=== PATIENT | female | born 1955 | race Two or more races ===

== ENCOUNTER 2025-05-19 19:42 | Inpatient (IN) | payer OTHER, MEDICAID ==
[~2025-05-19] VITALS: Ht 154.9 cm; Wt 67.9 kg
--- NOTE | 2025-05-19 20:13 | ED.PDOC ---
Naomie. trauma (HPI) HPI Comments 69-year-old female with a history of hypertension and dyslipidemia brought in by daughter for evaluation of a fall injury. Patient states she was walking with a laundry basket in her hands, when she accidentally tripped on a brick, falling onto an outstretched left hand, and hitting the left side of her face on the cement. Patient is complaining of left wrist pain and pain/ bruising near her left eye. She denies losing consciousness. Patient states she was able to stand and ambulate independently after the fall. At triage, patient was noted to be bradycardic in the 30s. Patient denies chest pain, shortness of breath or dizziness. Chief Complaint: Fall injury Time Seen by MD: 20:13 Reviewed notes: Nurses Notes Allergies: Coded Allergies: No Known Drug Allergy (Verified Allergy, Unknown, 05/19/25) Information Source: Patient, Relative Mode of Arrival: Ambulatory Severity: Moderate Timing: Minutes Duration: Since onset Location: Eye (Left), (L) Wrist Mechanism: Fall Associated signs and symtoms: Headache Past Medical History PAST MEDICAL HISTORY: High Lipids, HTN Surgical History: Hysterectomy (Partial) Surgical History (Other): Back surgery, left nephrectomy at 8 years old SOFTWARE INTEGRATION DEVELOPER History: Denies all SOFTWARE INTEGRATION DEVELOPER Hx Family History Family History: Reviewed,noncontributory to illness Social History Smoker: Non-Smoker Alcohol: Denies ETOH Use Drugs: Denies Drug Use Lives In: Home Constitutional: denies: chills, diaphoresis, fatigue, fever, malaise, sweats, weakness, others EENTM: denies: blurred vision, double vision, ear bleeding, ear discharge, ear drainage, ear pain, ear ringing, eye pain, eye redness, hearing loss, mouth pain, mouth swelling, nasal discharge, nose bleeding, nose congestion, nose pain, photophobia, tearing, throat pain, throat swelling, voice changes, others Respiratory: denies: cough, hemoptysis, orthopnea, SOB at rest, shortness of breath, SOB with excertion, stridor, wheezing, others Cardiovascular: denies: chest pain, dizzy spells, diaphoresis, Dyspnea on exertion, edema, irregular heart beat, left arm pain, lightheadedness, palpitations, PND, syncope, others Gastrointestinal: denies: abdomen distended, abdominal pain, blood streaked bowels, constipated, diarrhea, dysphagia, difficulty swallowing, hematemesis, melena, nausea, poor appetite, poor fluid intake, rectal bleeding, rectal pain, vomiting, others Genitourinary: denies: abnormal vagina bleeding, burning, dyspareunia, dysuria, flank pain, frequency, hematuria, incontinence, pain, , vagina discharge, urgency, others Neurological: denies: dizziness, fainting, headache, left sided numbness, left sided weakness, numbness, paresthesia, pre-existing deficit, right sided numbne ss, right sided weakness, seizure, speech problems, tingling, tremors, weakness, others Musculoskeletal: reports: joint pain (Left wrist); denies: back pain, gout, joint swelling, muscle pain, muscle stiffness, neck pain, others Integumetry: denies: bruises, change in color, change in hair/nails, dryness, laceration, lesions, lumps, rash, wounds, others Allergic/Immunocompromised: denies: Difficulty Healing, Frequent Infections, Hives, Itching, others Hematologic/Lymphatic: denies: anemia, blood clots, easy bleeding, easy bru ising, swollen glands, others Endocrine: denies: excessive hunger, excessive sweating, excessive thirst, e xcessive urination, flushing, intolerance to cold, intolerance to heat, unexplained weight gain, unexplained weight loss, others Psychiatric: denies: anxiety, bipolar disorder, depression, hopeless, panic disorder, schizophrenia, sleepless, suicidal, others Physical Exam General Appearance: Mild Distress HEENT: Other (Pupils and face symmetric. Moist mucous membranes. Soft tissue tenderness and bruising lateral left periorbital area) Neck: Full Range of Motion, Non-Tender, Normal Inspection, Supple Respiratory: Lungs Clear, No Accessory Muscle Use, No Respiratory Distress, Normal Breath Sounds Cardiovascular: Bradycardia, No Edema, No JVD Breast Exam: Deferred Gastrointestinal: Non Tender, Soft Genitalia: Deferred Pelvic: Deferred Rectal: Deferred Extremities: Tender (Left wrist diffuse soft tissue tenderness. No edema or deformity.) Neurologic: Alert (Oriented x4), Normal Affect, Normal Mood, Other (Ambulatory) Cerebellar Function: NOT DONE Reflexes: NOT DONE Skin: Dry, Normal Color, Warm Lymphatic: NOT DONE Was a procedure done? Was a procedure done?: No EKG EKG : Comments Sinus rhythm, rate 77, normal TX interval, QRS prolonged at 125, QTC prolonged at 526, left axis deviation, possible old inferior or anteroseptal infarct, nonspecific T change, ventricular bigeminy Differential Diagnosis Multiple Trauma: Closed Head Injury, Fractures, Cerebral Contusion, Hematoma Neck Injury: Other (Arrhythmia, TN, among others) X-Ray, Labs, Meds, VS Vital Signs Date Time Temp Pulse Resp B/P (MAP) Pulse Ox O2 Delivery O2 Flow Rate FiO2 05/19/25 19:50 98.2 61 18 146/58 (87) 97 98.2 Lab Test 05/19/25 21:02 05/19/25 20:09 Range/Units Troponin I High Sensitivity 16 13 </=34 ng/L White Blood Count 5.6 4.4-10.8 10^3/uL Red Blood Count 4.50 4.0-5.20 10^6/uL Hemoglobin 13.4 12.2-16.2 g/dL Hematocrit 40.6 36.0-46.0 % Mean Corpuscular Volume 90.1 80.0-100.0 fL Mean Corpuscular Hemoglobin 29.8 28.0-32.0 pg Mean Corpuscular Hemoglobin Concent 33.1 32.0-36.0 g/dL Red Cell Distribution Width 14.4 H 11.8-14.3 % Platelet Count 198 140-450 10^3/uL Mean Platelet Volume 8.8 6.9-10.8 fL Neutrophils (%) (Auto) 47.2 37.0-80.0 % Lymphocytes (%) (Auto) 40.1 10.0-50.0 % Monocytes (%) (Auto) 7.8 0.0-12.0 % Eosinophils (%) (Auto) 3.8 0.0-7.0 % Basophils (%) (Auto) 1.1 0.0-2.0 % Neutrophils # (Auto) 2.6 1.6-8.6 10 ^3/uL Lymphocytes # (Auto) 2.2 0.4-5.4 10 ^3/uL Monocytes # (Auto) 0.4 0-1.3 10 ^3/uL Eosinophils # (Auto) 0.2 0-0.8 10 ^3/uL Basophils # (Auto) 0.1 0-0.2 10 ^3/uL Nucleated Red Blood Cells 0.1 % Sodium Level 144 136-145 mmol/L Potassium Level 3.7 3.5-5.1 mmol/L Chloride Level 111 H 98-107 mmol/L Carbon Dioxide Level 22 20-31 mmol/L Anion Gap 11 5-15 Blood Urea Nitrogen 15 9-23 mg/dL Creatinine 0.65 0.550-1.02 mg/dL Glomerular Filtration Rate Calc 95 >90 mL/min BUN/Creatinine Ratio 23.1 H 10.0-20.0 Serum Glucose 109 H 74-106 mg/dL Calcium Level 9.3 8.7-10.4 mg/dL B-Type Natriuretic Peptide 203.93 0-100 pg/mL Current Medications Medications (Trade) Dose Ordered Sig/Elena Route Start Time Stop Time Status Last Admin Acetaminophen/ Hydrocodone Bitart ([place] 5/325MG Tab) 1 tab ONCE ONCE PO 05/19/25 20:15 05/19/25 20:16 DC 05/19/25 20:52 PROCEDURE(s): FAC2C - MAXILLOFACIAL WITHOUT REASON: L facial trauma ORDER NUMBER(s): [id number], ACCESSION NUMBER(s): [id number] CT MAXILLOFACIAL WITHOUT INDICATION: L facial trauma TECHNIQUE: Noncontrast axial images of the facial bones are then obtained along with coronal and sagittal reformatted images. All CT scans at this facility use dose modulation, iterative reconstruction, and/or weight based dosing when appropriate to reduce radiation dose to as low as reasonably achievable. COMPARISON: None FINDINGS: FACIAL BONES: The nasal, lacrimal, inferior nasal lucille, and palatine bones are intact. The vomer and perpendicular plate of the ethmoid are intact. The zygomatic bones are intact. The maxilla is intact. The mandible is intact. PARANASAL SINUSES: The bony margins of the paranasal sinuses are intact. There is no air fluid level within the sinuses. The paranasal sinuses are essentially clear. ORBITS: The right and left globes are intact. The bony margins of the orbits are intact. The extraconal space is intact without inflammatory stranding of the extraconal fat. The extraocular muscles are symmetric. The intraconal space including the optic canal and nerve are symmetric. OTHER: Degenerative change of bilateral temporomandibular joints. IMPRESSION: 1. No CT evidence of an acute facial fracture. EDURE(s): CXRP - CHEST PORTABLE REASON: bradycardia ORDER NUMBER(s): [id number], ACCESSION NUMBER(s): [id number] EXAM: XY CHEST PORTABLE HISTORY: bradycardia TECHNIQUE: 1 view of the chest COMPARISON: None FINDINGS/IMPRESSION: LUNGS: No pleural effusion, consolidation, or pneumothorax. Low lung volumes, which cause crowding of the bronchovascular markings. MEDIASTINUM: Normal cardiac size BONES: No acute osseous abnormality OTHER: None EDURE(s): LWRI - L WRIST 3+ VIEW XRAY REASON: FOOSH ORDER NUMBER(s): [id number], ACCESSION NUMBER(s): [id number] EXAM: XY L WRIST 3+ VIEW XRAY INDICATION: FOOSH TECHNIQUE: 3 views of the left wrist COMPARISON: None FINDINGS/IMPRESSION: No radiographic evidence of an acute osseous abnormality. There is no acute fracture, osseous malalignment, or aggressive focal osseous lesion. Mild degenerative change of the 1st carpometacarpal joint. Diffusely decreased bone mineralization. Trace possible soft tissue calcification in the region of the triangular fibrocartilage complex. X-Ray, Labs, Meds, VS Comment 69-year-old female with a history of hypertension and dyslipidemia brought in by daughter for evaluation of left wrist and left facial pain status post mechanical trip and fall. Patient was incidentally found to be bradycardic down to the 30s at triage. Vitals remarkable for heart rate 33 Rhythm strip independently interpreted by me: Sinus rhythm, rate 77, ventricular bigeminy CT maxillofacial bones, chest x-ray and left wrist x-rays unremarkable for any acute finding CBC and basic metabolic panel unremarkable, 2 serial troponins negative, BNP 203.93 Patient treated with the following in the ED: [place] 5/325 mg p.o. On re-evaluation, heart rate was in the 60s and blood pressure was stable. Patient stated pain had improved. Plan is to admit the patient for Cardiology evaluation Time of 1ST Reevaluation: 20:08 Reevaluation 1ST: Unchanged Time of 2ND Reevaluation: 21:32 Reevaluation 2ND: Improved Patient Education/Counseling: Diagnosis, Treatment Family Education/Counseling: Diagnosis, Treatment Departure 1 Departure Time of Disposition: 21:32 Impression: Primary Impression: Fall Additional Impressions: Left wrist sprain Facial contusion Bradycardia Ventricular bigeminy Disposition: ADMITTED INPATIENT Admit to: Tele Condition: Guarded Critical Care Note Critical Care Time?: Yes (35 min-critical care time only) Critical care comment: Critical care time including multiple bedside re-evaluations, review of lab and imaging studies, and discussion of the case with the admitting provider. Patient is high risk for hemodynamic decompensation. Stability Stability form required: No Heart Score Heart Score: Heart Score Response (Comments) Value History N/A 0 EKG N/A 0 Age N/A 0 Risk Factors N/A 0 Troponin N/A 0 Total 0 I personally scribed for MIREYA OZUNA MD ([email or web address]) on 05/19/25 at 20:13. Electronically submitted by Krunal Chamberlain ([facility]). I personally scribed for MIREYA OZUNA MD ([email or web address]) on 05/19/25 at 21:36. Electronically submitted by Krunal Chamberlain ([email or web address]). MIREYA OZUNA MD May 19, 2025 20:13
[2025-05-19 20:21] LABS: Hematocrit 40.6 % (36.0-46.0); Hemoglobin 13.4 g/dL (12.2-16.2); Mean Corpuscular Hemoglobin 29.8 pg (28.0-32.0); Mean Corpuscular Volume 90.1 fL (80.0-100.0); Nucleated Red Blood Cells % 0.1 %
[2025-05-19 20:39] LABS: Potassium 3.7 mmol/L (3.5-5.1); Sodium 144 mmol/L (136-145)
[2025-05-19 20:40] LABS: Anion Gap 11 (5-15); Calcium 9.3 mg/dL (8.7-10.4); Carbon Dioxide 22 mmol/L (20-31)
[2025-05-19 20:44] LABS: Chloride 111 mmol/L (98-107)
[2025-05-19 20:45] LABS: BUN/Creatinine Ratio 23.1 (10.0-20.0); Blood Urea Nitrogen 15 mg/dL (9-23)
[2025-05-19 20:46] LABS: Glucose 109 mg/dL (74-106)
[2025-05-19] MEDS: HYDROcodone-ACET 5/325MG TAB PO ONE (20:52)
--- NOTE | 2025-05-19 21:09 | DVH ---
EXAM: XY L WRIST 3+ VIEW XRAY INDICATION: FOOSH TECHNIQUE: 3 views of the left wrist COMPARISON: None FINDINGS/IMPRESSION: No radiographic evidence of an acute osseous abnormality. There is no acute fracture, osseous malalig nment, or aggressive focal osseous lesion. Mild degenerative change of the 1st carpometacarpal joint. Diffusely decreased bone mineralization. Trace possible soft tissue calcification in the region of t he triangular fibrocartilage complex.
--- NOTE | 2025-05-19 21:12 | DVH ---
CT MAXILLOFACIAL WITHOUT INDICATION: L facial trauma TECHNIQUE: Noncontrast axial images of the facial bones are then obtained along with coronal and sagi ttal reformatted images. All CT scans at this facility use dose modulation, iterative reconstruction, and/or weight based dosing when appropriate to reduce radiation dose to as low as reasonably achieva ble. COMPARISON: None FINDINGS: FACIAL BONES: The nasal, lacrimal, inferior nasal lucille, and palatine bones are intact. The vomer an d perpendicular plate of the ethmoid are intact. The zygomatic bones are intact. The maxilla is intac t. The mandible is intact. PARANASAL SINUSES: The bony margins of the paranasal sinuses are intact. There is no air fluid level within the sinuses. The paranasal sinuses are essentially clear. ORBITS: The right and left globes are intact. The bony margins of the orbits are intact. The extracon al space is intact without inflammatory stranding of the extraconal fat. The extraocular muscles are symmetric. The intraconal space including the optic canal and nerve are symmetric. OTHER: Degenerative change of bilateral temporomandibular joints. IMPRESSION: 1. No CT evidence of an acute facial fracture.
--- NOTE | 2025-05-19 21:12 | DVH ---
EXAM: XY CHEST PORTABLE HISTORY: bradycardia TECHNIQUE: 1 view of the chest COMPARISON: None FINDINGS/IMPRESSION: LUNGS: No pleural effusion, consolidation, or pneumothorax. Low lung volumes, which cause crowding of the bronchovascular markings. MEDIASTINUM: Normal cardiac size BONES: No acute osseous abnormality OTHER: None
--- NOTE | 2025-05-19 23:14 | DVHHP2 ---
History of Present Illness Reason for Visit: Facial contusion History of Present Illness The patient is a 69-year-old female with past medical history of hypertension and hyperlipidemia who presented to [facility] ED for evaluation of fall injury. Patient reports she was working with a laundry basket in her hand w hen she accidentally tripped and fall on a brick outstretched left hand, and hitting the left side of her face on the cement with sustained injury. Patient is complaining of left wrist pain, left shoulder pain, bruising near her left eye. Patient was seen and evaluated in the ED, laboratory data shows WBC 5.6, platelets 198, sodium 144, potassium 3.7, BUN 15, creatinine 0.65, glucose 109, calcium 9.3, troponin 16, BNP 203.93, blood pressure 146/58, heart rate 62, temperature 98.2 F, O2 saturation 97% on room air. Maxillofacial CT showed no acute evidence of facial fracture. On my assessment, patient denied chest pain, no headache, no dizziness, no loss of consciousness, no shortness of breaths, no nausea, no vomiting, no fever, no chills. Patient was admitted for further evaluation and medical management. Past Medical History High Lipids, HTN Past Surgical History Hysterectomy (Partial), Back surgery, left nephrectomy at 8 years old Family History Reviewed, noncontributory to the management of this case. Past Social History The patient lives at home, denies smoking, alcohol or illicit drugs abuse. Review of Systems Constitutional: No: Fever, Chills, Sweats, Weakness, Malaise, Other Eyes: No: Pain, Vision change, Conjunctivae inflammation, Eyelid inflammation, Other, Redness ENT: No: Ear pain, Ear discharge, Nose pain, Nose discharge, Nose congestion, Mouth pain, Mouth swelling, Throat pain, Throat swelling, Other Respiratory: No: Cough, Dry, Shortness of breath, SOB with excertion, Wheezing, Hemoptysis, Pleuritic Pain, Sputum, Wheezing, Other Cardiovascular: No: Chest Pain, Palpitations, Orthopnea, Paroxysmal Noc. Dyspnea, Edema, Lt Headedness, Other Gastrointestinal: No: Nausea, Vomiting, Abdominal Pain, Diarrhea, Constipation, Melena, Hematochezia, Other Genitourinary: No Dysuria, No Frequency, No Incontinence, No Hematuria, No Retention, No Other Musculoskeletal: other (Left wrist pain), shoulder pain; No: neck pain, arm pain, back pain, hand pain, leg pain, foot pain Skin: No: Rash, Lesions, Jaundice, Bruising, Other Neurological: No: Weakness, Numbness, Incoordination, Change in speech, Confusion, Seizures, Other Allergies: Coded Allergies: No Known Drug Allergy (Verified Allergy, Unknown, 05/19/25) Exam Vital Signs Vital Signs Date Time Temp Pulse Resp B/P (MAP) Pulse Ox O2 Delivery O2 Flow Rate FiO2 05/19/25 19:50 98.2 61 18 146/58 (87) 97 98.2 General Appearance: Alert, Oriented X3, Cooperative, No acute distress HEENT: Atraumatic, PERRLA, EOMI, Mucous membr. moist/pink Respiratory: Clear to auscultation, Normal air movement Cardiovascular: Regular rate, Normal S1, Normal S2, No murmurs Abdominal: Normal bowel sounds, Soft, No tenderness, No hepatospenomegaly, No masses Extremities: No clubbing, No cyanosis, No edema, Normal pulses, Other (Reports tenderness/swelling) Skin: No rashes, No breakdown, No significant lesion Neuro: Normal gait, Normal speech, Strength at 5/5 X4 ext, Normal tone, Sensation intact, Cranial nerves 3-12 NL, Reflexes 2+ Psych/Mental Status: Mental status NL, Mood NL Labs/Xrays Labs Test 05/19/25 21:02 05/19/25 20:09 Range/Units Troponin I High Sensitivity 16 </=34 ng/L White Blood Count 5.6 4.4-10.8 10^3/uL Red Blood Count 4.50 4.0-5.20 10^6/uL Hemoglobin 13.4 12.2-16.2 g/dL Hematocrit 40.6 36.0-46.0 % Mean Corpuscular Volume 90.1 80.0-100.0 fL Mean Corpuscular Hemoglobin 29.8 28.0-32.0 pg Mean Corpuscular Hemoglobin Concent 33.1 32.0-36.0 g/dL Red Cell Distribution Width 14.4 H 11.8-14.3 % Platelet Count 198 140-450 10^3/uL Mean Platelet Volume 8.8 6.9-10.8 fL Neutrophils (%) (Auto) 47.2 37.0-80.0 % Lymphocytes (%) (Auto) 40.1 10.0-50.0 % Monocytes (%) (Auto) 7.8 0.0-12.0 % Eosinophils (%) (Auto) 3.8 0.0-7.0 % Basophils (%) (Auto) 1.1 0.0-2.0 % Neutrophils # (Auto) 2.6 1.6-8.6 10 ^3/uL Lymphocytes # (Auto) 2.2 0.4-5.4 10 ^3/uL Monocytes # (Auto) 0.4 0-1.3 10 ^3/uL Eosinophils # (Auto) 0.2 0-0.8 10 ^3/uL Basophils # (Auto) 0.1 0-0.2 10 ^3/uL Nucleated Red Blood Cells 0.1 % Sodium Level 144 136-145 mmol/L Potassium Level 3.7 3.5-5.1 mmol/L Chloride Level 111 H 98-107 mmol/L Carbon Dioxide Level 22 20-31 mmol/L Anion Gap 11 5-15 Blood Urea Nitrogen 15 9-23 mg/dL Creatinine 0.65 0.550-1.02 mg/dL Glomerular Filtration Rate Calc 95 >90 mL/min BUN/Creatinine Ratio 23.1 H 10.0-20.0 Serum Glucose 109 H 74-106 mg/dL Calcium Level 9.3 8.7-10.4 mg/dL B-Type Natriuretic Peptide 203.93 0-100 pg/mL PATIENT: CARLA COLON ACCT: [id number] UNIT: [id number] : 1955 LOC: ER ROOM / BED: / AGE / SEX: 69 / F ADM STATUS: REG ER SERVICE 06 ORDERING PHYSICIAN: MIREYA OZUNA MD PROCEDURE(s): FAC2C - MAXILLOFACIAL WITHOUT REASON: L facial trauma ORDER NUMBER(s): [id number], ACCESSION NUMBER(s): [id number] CT MAXILLOFACIAL WITHOUT INDICATION: L facial trauma TECHNIQUE: Noncontrast axial images of the facial bones are then obtained along with coronal and sagittal reformatted images. All CT scans at this facility use dose modulation, iterative reconstruction, and/or weight based dosing when appropriate to reduce radiation dose to as low as reasonably achievable. COMPARISON: None FINDINGS: FACIAL BONES: The nasal, lacrimal, inferior nasal lucille, and palatine bones are intact. The vomer and perpendicular plate of the ethmoid are intact. The zygomatic bones are intact. The maxilla is intact. The mandible is intact. PARANASAL SINUSES: The bony margins of the paranasal sinuses are intact. There is no air fluid level within the sinuses. The paranasal sinuses are essentially clear. ORBITS: The right and left globes are intact. The bony margins of the orbits are intact. The extraconal space is intact without inflammatory stranding of the extraconal fat. The extraocular muscles are symmetric. The intraconal space including the optic canal and nerve are symmetric. OTHER: Degenerative change of bilateral temporomandibular joints. IMPRESSION: 1. No CT evidence of an acute facial fracture. ORDERING PHYSICIAN: MIREYA OZUNA MD PROCEDURE(s): LWRI - L WRIST 3+ VIEW XRAY REASON: FOOSH ORDER NUMBER(s): [id number], ACCESSION NUMBER(s): [id number] EXAM: XY L WRIST 3+ VIEW XRAY INDICATION: FOOSH TECHNIQUE: 3 views of the left wrist COMPARISON: None FINDINGS/IMPRESSION: No radiographic evidence of an acute osseous abnormality. There is no acute fracture, osseous malalignment, or aggressive focal osseous lesion. Mild degenerative change of the 1st carpometacarpal joint. Diffusely decreased bone mineralization. Trace possible soft tissue calcification in the region of the triangular fibrocartilage complex. ORDERING PHYSICIAN: MIREYA OZUNA MD PROCEDURE(s): CXRP - CHEST PORTABLE REASON: bradycardia ORDER NUMBER(s): [id number], ACCESSION NUMBER(s): [id number] EXAM: XY CHEST PORTABLE HISTORY: bradycardia TECHNIQUE: 1 view of the chest COMPARISON: None FINDINGS/IMPRESSION: LUNGS: No pleural effusion, consolidation, or pneumothorax. Low lung volumes, which cause crowding of the bronchovascular markings. MEDIASTINUM: Normal cardiac size BONES: No acute osseous abnormality Assessment/Plan Assessment/Plan Fall with injury Left wrist sprain Facial contusion Bradycardia Ventricular bigeminy Plan 1. Admit to telemetry units 2. Breathing treatment 3. Pain control management 4. Management of fluids and electrolytes 5. Consultation for hospitalist 6. Diagnostic tests left wrist x-ray 7. DVT prophylaxis-on SCDs 8. Repeat labs CBC, CMP in a.m. 9. Continue with current medical management 10. Treatment plan discussed with patient and RN. Patient verbalized understanding. Plan discussed with: Patient, Other (RN) My Orders Orders - RIMA LAWSON DNP Procedure Category Date Status Time Hydralazine Injection PHA 05/19/25 Verified (Apresoline Inject 23:15 Amlodipine Tablet PHA 05/20/25 Verified (Norvasc Tablet) 10:00 Atorvastatin (Lipitor) PHA 05/20/25 Verified 22:00 Admit ADMIT 05/19/25 Verified 23:08 Allergies JB 05/19/25 Verified 23:08 Code Status CODE 05/19/25 Verified 23:08 Sodium Chloride Lock PHA 05/20/25 Verified (Saline Lock Ns) 06:00 Oxygen Per Hour RT 05/19/25 Verified 23:08 Hydrocodone-Acet [facility] 05/19/25 Verified 5/325mg Tab ([place] 23:15 Ondansetron Hcl PHA 05/19/25 Verified (Zofran) 23:15 Docusate [address]odium [facility] 05/19/25 Verified Capsule (Colace 23:15 Complete Blood Count LAB 05/20/25 Verified 04:00 Comprehensive LAB 05/20/25 Verified Metabolic Panel 04:00 Cardiac DIET 05/20/25 Verified Diet-2gna,Lofat,Lochol Breakfast Condition: Serious [facility] 05/19/25 Verified 23:08 Acetaminophen Tablet [facility] 05/19/25 Verified (Tylenol Tablet) 23:15 Bedrest With Bathroom [facility] 05/19/25 Verified Privileg 23:08 Sequential [facility] 05/19/25 Verified Compression Device Nitroglycerin [facility] 05/19/25 Verified Sublingual (Ntrostat 23:[address] Morphine [address]ulf[address] [facility] 05/19/25 Verified Injection 23:15 Stat Ekg For Chest [facility] 05/19/25 Verified Pain 23:08 Notify Of Changes [facility] 05/19/25 Verified From Base 23:08 Shift Superintendent Caustic Cresylate For [facility] 05/19/25 Verified 24 Hours 23:08 Emergency Dysrhythmia [facility] 05/19/25 Verified Protocol 23:08 Rhythm Strips Once [facility] 05/19/25 Verified Every Shift 23:08 Oxygen By Nasal RT 05/19/25 Verified Cannula 23:08 Gabap[address]aps[address] [facility] 05/20/25 Verified (Neurontin Capsule) 06:00 Problem List: (1) Fall with injury (2) Left wrist sprain (3) Facial contusion (4) Bradycardia (5) Ventricular bigeminy Date of Service: May 19, 2025 Billing Provider: RIMA LAWSON DNP Common Visit Codes: [id number] INP/OBS CARE (HIGH) RIMA LAWSON DNP May 19, 2025 23:14
[2025-05-19] MEDS ORDERED: MORPHINE SULFATE INJ 2 MG/ml SYRG IV PRN (23:15)
[2025-05-19] MEDS ORDERED: hydrALAZINE HCL 20 MG/ML VL IV PRN (23:15)
[2025-05-19] MEDS ORDERED: DOCUSATE SOD 100 MG CAP PO PRN (23:15)
[2025-05-19] MEDS ORDERED: NITROGLYCERIN 0.4 MG SL TAB SL PRN (23:15)
[2025-05-19] MEDS ORDERED: ONDANSETRON HCL 4 MG/2 ML VIAL IV PRN (23:15)
[2025-05-19 23:39] VITALS: PULSE 61; RESP 20; O2SAT 91
[2025-05-20] VITALS (8 sets, daily range): BP systolic 120–149; BP diastolic 62–88; PULSE 50–85; RESP 12–18; TEMP 97.6–98.4; O2SAT 52–96
[2025-05-20] MEDS: ACETAMINOPHEN 325 MG TAB PO PRN (02:54)
[2025-05-20] MEDS ORDERED: TRAM-626 PO (04:07)
[2025-05-20] MEDS ORDERED: CITA10TA8 PO (04:08)
[2025-05-20] MEDS ORDERED: ATOR20TA PO (04:08)
[2025-05-20] MEDS: GABAPENTIN 300 MG CAP PO SCH (06:03)
[2025-05-20] MEDS: SODIUM CHLOR 0.9% PF (SALINE LOCK) 10ML VIAL/SYR IV SCH (06:06)
--- NOTE | 2025-05-20 06:41 | ECG ---
[facility] Test Date: 2025-05-19 Test Time: 20:01:36 Pat Name: CARLA COLON Department: ER Room: 0245T Gender: F Childcare Worker: SRINIVAS : 1955 Requested By: MIREYA REDMAN Order Number: [id number] Reading MD: Measurements Intervals [place] Rate: 77 P: 45 MI: 154 QRS: -6 QRSD: 125 T: 84 QT: 464 QTc: 526 Interpretive Statements Sinus rhythm Ventricular bigeminy Nonspecific intraventricular conduction delay Consider anterior infarct Please click the below link to view image of tracing.
[2025-05-20 07:46] LABS: Hematocrit 43.3 % (36.0-46.0); Hemoglobin 14.4 g/dL (12.2-16.2); Mean Corpuscular Hemoglobin 30.0 pg (28.0-32.0); Mean Corpuscular Volume 90.4 fL (80.0-100.0); Nucleated Red Blood Cells % 0.1 %
[2025-05-20 08:07] LABS: Albumin 4.5 g/dL (3.2-4.8); Alkaline Phosphatase 110 U/L (46-116); Anion Gap 11 (5-15); BUN/Creatinine Ratio 14.8 (10.0-20.0); Bilirubin, Total 0.7 mg/dL (0.2-1.0); Calcium 9.8 mg/dL (8.7-10.4); Carbon Dioxide 24 mmol/L (20-31); Potassium 3.8 mmol/L (3.5-5.1); Sodium 144 mmol/L (136-145); Total Protein 7.0 g/dL (5.7-8.2)
[2025-05-20 08:20] LABS: Alanine Aminotransferase 55 U/L (7-40); Blood Urea Nitrogen 9 mg/dL (9-23); Chloride 109 mmol/L (98-107); Glucose 107 mg/dL (74-106)
[2025-05-20] MEDS: HYDROcodone-ACET 5/325MG TAB PO PRN (09:35)
--- NOTE | 2025-05-20 17:12 | DVHDS2 ---
Discharge Summary Date of Admission May 19, 2025 at 23:08 Date of Discharge: May 20, 2025 Labs/Diagnostic Data: Laboratory Results Test 05/20/25 06:52 05/19/25 21:02 05/19/25 20:09 White Blood Count 6.2 10^3/uL (4.4-10.8) Red Blood Count 4.79 10^6/uL (4.0-5.20) Hemoglobin 14.4 g/dL (12.2-16.2) Hematocrit 43.3 % (36.0-46.0) Mean Corpuscular Volume 90.4 fL (80.0-100.0) Mean Corpuscular Hemoglobin 30.0 pg (28.0-32.0) Mean Corpuscular Hemoglobin Concent 33.2 g/dL (32.0-36.0) Red Cell Distribution Width 14.0 % (11.8-14.3) Platelet Count 198 10^3/uL (140-450) Mean Platelet Volume 8.9 fL (6.9-10.8) Neutrophils (%) (Auto) 55.7 % (37.0-80.0) Lymphocytes (%) (Auto) 33.4 % (10.0-50.0) Monocytes (%) (Auto) 6.5 % (0.0-12.0) Eosinophils (%) (Auto) 3.4 % (0.0-7.0) Basophils (%) (Auto) 1.0 % (0.0-2.0) Neutrophils # (Auto) 3.5 10 ^3/uL (1.6-8.6) Lymphocytes # (Auto) 2.1 10 ^3/uL (0.4-5.4) Monocytes # (Auto) 0.4 10 ^3/uL (0-1.3) Eosinophils # (Auto) 0.2 10 ^3/uL (0-0.8) Basophils # (Auto) 0.1 10 ^3/uL (0-0.2) Nucleated Red Blood Cells 0.1 % Sodium Level 144 mmol/L (136-145) Potassium Level 3.8 mmol/L (3.5-5.1) Chloride Level 109 mmol/L (98-107) Carbon Dioxide Level 24 mmol/L (20-31) Anion Gap 11 (5-15) Blood Urea Nitrogen 9 mg/dL (9-23) Creatinine 0.61 mg/dL (0.550-1.02) Glomerular Filtration Rate Calc 97 mL/min (>90) BUN/Creatinine Ratio 14.8 (10.0-20.0) Serum Glucose 107 mg/dL (74-106) Calcium Level 9.8 mg/dL (8.7-10.4) Total Bilirubin 0.7 mg/dL (0.2-1.0) Aspartate Amino Transferase (AST) 91 U/L (13-40) Alanine Aminotransferase (ALT) 55 U/L (7-40) Alkaline Phosphatase 110 U/L (46-116) Total Protein 7.0 g/dL (5.7-8.2) Albumin 4.5 g/dL (3.2-4.8) Troponin I High Sensitivity 16 ng/L (</=34) B-Type Natriuretic Peptide 203.93 pg/mL (0-100) Other Laboratory Tests 05/20/25 06:52 Brief Hx & Hospital Course: History of Present Illness The patient is a 69-year-old female with past medical history of hypertension and hyperlipidemia who presented to [facility] ED for evaluation of fall injury. Patient reports she was working with a laundry basket in her hand when she accidentally tripped and fall on a brick outstretched left hand, and hitting the left side of her face on the cement with sustained injury. Patient is complaining of left wrist pain, left shoulder pain, bruising near her left eye. Patient was seen and evaluated in the ED, laboratory data shows WBC 5.6, platelets 198, sodium 144, potassium 3.7, BUN 15, creatinine 0.65, glucose 109, calcium 9.3, troponin 16, BNP 203.93, blood pressure 146/58, heart rate 62, temperature 98.2 F, O2 saturation 97% on room air. Maxillofacial CT showed no acute evidence of facial fracture. On my assessment, patient denied chest pain, no headache, no dizziness, no loss of consciousness, no shortness of breaths, no nausea, no vomiting, no fever, no chills. Patient was admitted for further evaluation and medical management. Summary: Patient presented after mechanical fall while doing laundry. She complained with left wrist, left shoulder, left eye trauma. X-ray left wrist, maxillofacial CT, chest x-ray are all negative for any acute traumas or abnormalities. Patient is noted to be bradycardic. Chronotropic test done with 6 minute walk test inpatient has adequate chronotropic response. Orthostatic vitals are done. Orthostatic vitals are negative. Lab workup is negative for any concerning electrolyte abnormalities. Patient is stable for discharge as per plan below. Diagnosis: Mechanical fall Left wrist sprain Facial contusion Bradycardia, asymptomatic Ventricular bigeminy, asymptomatic Ruled out maxillofacial fracture Ruled out orbital fractures Ruled out arrhythmias Ruled out chronotropic incompetence Ruled out orthostatic hypotension Hypertension Hyperlipidemia Discharge plan: - ice to contusion areas - okay to use Tylenol 1st line, ibuprofen second-line; [id number] medications - continue home medications - close monitoring by family members for next 24hours for change mental status and/or somnolence - follow up with PCP. PCP to consider cardiology referral for bigeminy and ventricular PVCs, bradycardia) Condition at Discharge: Fair Final Diagnosis/Problems List Mechanical fall Left wrist sprain Facial contusion Bradycardia, asymptomatic Ventricular bigeminy, asymptomatic Ruled out maxillofacial fracture Ruled out orbital fractures Ruled out arrhythmias Ruled out chronotropic incompetence Ruled out orthostatic hypotension Hypertension Hyperlipidemia Discharge Disposition: Home Discharge Instruct/Medications Scheduled Atorvastatin Calcium (Lipitor), 1 TAB PO DAILY, (Reported) Citalopram Hydrobromide (Celexa), 1 TAB PO DAILY, (Reported) Tramadol HCl (Tramadol HCl), 50 MG PO QID, (Reported) Discharge Statement: "Patient was advised to return to the ER or call 911 if any headaches, dizziness, shortness of breath, chest pain, abdominal pain, bleeding, fevers, or worsening of medical condition. Patient was counseled about treatment plan, medications, possible side effects, patientverbalized understanding. All questions were answered to the best of my ability. This discharge took greater then 30 minutes in planning, reviewing documentation, counseling the patient, and discussing with other team members." ASSESSMENT ASSESSMENT Assessment Date of Service: May 20, 2025 Billing Provider: ELLIE DOIMNGUEZ MD Common Visit Codes: 77284-ZZJ/OBS DISCH DAY >30min ELLIE DOMINGUEZ MD May 20, 2025 17:11
[2025-05-20] MEDS ORDERED: ATORVASTATIN 20 MG TAB PO SCH (22:00)
== END 2025-05-20 18:45 | disposition home or self-care (01) | DRG 605 ==
LOC: ER 19:50 → OVERFLOW 23:08 → TELE-EAST 05-20 01:35
PROVIDERS: ADMIT Nurse Practitioner Family; ATTEND Nurse Practitioner Family
DX: S00.83XA Contusion of other part of head, initial encounter (principal); S63.502A Unspecified sprain of left wrist, initial encounter; I10 Essential (primary) hypertension; E78.5 Hyperlipidemia, unspecified; R00.8 Other abnormalities of heart beat; Z79.899 Other long term (current) drug therapy; Z90.711 Acquired absence of uterus with remaining cervical stump; Z90.5 Acquired absence of kidney; W01.0XXA Fall on same level from slipping, tripping and stumbling without subsequent striking against object, initial encounter; Y93.89 Activity, other specified; Y92.89 Other specified places as the place of occurrence of the external cause; Y99.8 Other external cause status
CPT/HCPCS: 36415; 70486; 71045; 73110; 80048; 80053; 83880; 84484; 85025; 93005; 99291; G0378